=== PATIENT | female | born 1940 | race Caucasian/White ===

== ENCOUNTER 2025-01-20 11:15 | Emergency (ER) | payer MEDICARE, OTHER ==
[2025-01-20 13:21] VITALS: BP 181/63; PULSE 59
== END 2025-01-20 13:16 | disposition home or self-care (01) ==
LOC: DL.ED 11:15
DX: E11.39 Type 2 diabetes mellitus with other diabetic ophthalmic complication (principal); I10 Essential (primary) hypertension; Z88.8 Allergy status to other drugs, medicaments and biological substances; Z79.82 Long term (current) use of aspirin; Z79.899 Other long term (current) drug therapy
CPT/HCPCS: 99283; A9270; 99284; J3490

== ENCOUNTER 2025-01-22 10:10 | Inpatient (IN) | payer MEDICARE, OTHER ==
[2025-01-22 10:51] LABS: BASOPHILS PERCENT AUTO 0.3 % (0.0-1.0); EOSINOPHILS PERCENT AUTO 0.8 % (1.0-3.0); LYMPHOCYTES PERCENT AUTO 10.1 % (20.5-50.1); MONOCYTES PERCENT AUTO 5.9 % (2-8); NEUTROPHILS PERCENT AUTO 82.9 % (42.2-75.2); PLATELET COUNT,PLT 161 10^3/uL (150-450); RED BLOOD CELL COUNT 3.33 10^6/uL (4.2-5.4); WHITE BLOOD CELL COUNT,WBC 8.7 10^3/uL (5.0-10.0)
[2025-01-22 11:06] LABS: INR 1.1 (0.9-1.2)
[2025-01-22 11:11] LABS: A/G RATIO 1.0; ALANINE AMINOTRANSFERASE,ALT 30.0 U/L (14-59); ASPARTATE AMNIOTRANSFERASE,AST 11.0 U/L (15-37); BILIRUBIN TOTAL 0.6 mg/dL (0.2-1.0); BLOOD UREA NITROGEN,BUN 35.0 mg/dL (7-18); CARBON DIOXIDE,CO2 17.0 mmol/L (21-32); CHLORIDE,CL 112.0 mmol/L (98-107); CREATININE 1.49 mg/dL (0.55-1.02); EST CRCL DRUG DOSING (CG) 20.91 mL/min; ESTIMATED GFR 35.0 mL/min (>=60); GLUCOSE RANDOM 197.0 mg/dL (70-99); POTASSIUM,K 3.9 mmol/L (3.5-5.1); PROTEIN TOTAL,TP 7.0 g/dL (6.4-8.2); SODIUM,NA 143.0 mmol/L (136-145)
[2025-01-22] MEDS: Iopamidol 612 MG/ML 100 ML Bottle IVPUSH ONE (11:25)
[2025-01-22 12:10] LABS: APPEARANCE,URINE CLEAR (CLEAR); GLUCOSE,URINE NEGATIVE (NEGATIVE); OCCULT BLOOD,URINE NEGATIVE (NEGATIVE)
[2025-01-22 12:20] LABS: SQUAMOUS EPITHELIAL CELLS,UR FEW /HPF (NOT SEEN)
[2025-01-22] MEDS ORDERED: Sodium Chloride 0.9% 10 ML Syringe FLUSH PRN (14:15)
[2025-01-22] MEDS ORDERED: Ondansetron 4 MG/2 ML SDV IVPUSH PRN (14:15)
[2025-01-22] MEDS ORDERED: Sennosides/Docusate Sodium 50-8.6 MG Tab PO PRN (14:15)
[2025-01-22 14:53] LABS: IRON,FE 70.0 ug/dL (50-170); PERCENT FE SATURATION 25.7 % (20.0-50.0)
[2025-01-22 15:06] LABS: FOLIC ACID 17.4 ng/mL (8.6-58.9)
[2025-01-22] MEDS ORDERED: 50% Dextrose in Water 50 ML Syringe IVPUSH PRN (15:32)
[2025-01-22 16:35] LABS: T4 FREE 0.95 ng/dL (0.76-1.46); TSH ULTRASENSITIVE 3.37 uIU/mL (0.36-3.74)
[2025-01-22] MEDS ORDERED: hydrALAZINE 20 MG/ML SDV IVPUSH PRN (19:33)
[2025-01-22] MEDS: Dorzolamide/Timolol 2%-0.5% Ophth Soln 10 ML Bottle EYEBOTH SCH (20:29)
[2025-01-22] MEDS: Sodium Chloride 0.9% 10 ML Syringe FLUSH SCH (20:32)
[2025-01-23 06:25] LABS: BASOPHILS PERCENT AUTO 0.2 % (0.0-1.0); EOSINOPHILS PERCENT AUTO 1.9 % (1.0-3.0); LYMPHOCYTES PERCENT AUTO 14.1 % (20.5-50.1); MONOCYTES PERCENT AUTO 10.7 % (2-8); NEUTROPHILS PERCENT AUTO 73.1 % (42.2-75.2); PLATELET COUNT,PLT 156 10^3/uL (150-450); RED BLOOD CELL COUNT 3.16 10^6/uL (4.2-5.4); WHITE BLOOD CELL COUNT,WBC 10.1 10^3/uL (5.0-10.0)
[2025-01-23 06:43] LABS: ALANINE AMINOTRANSFERASE,ALT 23.0 U/L (14-59); ASPARTATE AMNIOTRANSFERASE,AST 12.0 U/L (15-37); BILIRUBIN TOTAL 0.6 mg/dL (0.2-1.0); BLOOD UREA NITROGEN,BUN 35.0 mg/dL (7-18); CARBON DIOXIDE,CO2 20.0 mmol/L (21-32); CHLORIDE,CL 109.0 mmol/L (98-107); CREATININE 1.59 mg/dL (0.55-1.02); EST CRCL DRUG DOSING (CG) 21.57 mL/min; GLUCOSE RANDOM 148.0 mg/dL (70-99); POTASSIUM,K 3.9 mmol/L (3.5-5.1); PROTEIN TOTAL,TP 6.2 g/dL (6.4-8.2); SODIUM,NA 139.0 mmol/L (136-145)
[2025-01-23 06:47] LABS: A/G RATIO 1.0; ESTIMATED GFR 32.0 mL/min (>=60)
[2025-01-23] MEDS: Lutein/Minerals/Vit A,C & E Tab PO SCH (08:06)
[2025-01-23] MEDS ORDERED: Cyanocobalamin (Vitamin B12) 1,000 MCG Tab PO SCH (09:00)
[2025-01-23] MEDS ORDERED: Non-Formulary Medication 1 Each (Fish Oil/Omega-3 Fatty Acids [Fish Oil 1,000 Mg] 1 GM Cap PO SCH (09:00)
[2025-01-24 06:17] LABS: BASOPHILS PERCENT AUTO 0.2 % (0.0-1.0); EOSINOPHILS PERCENT AUTO 1.8 % (1.0-3.0); LYMPHOCYTES PERCENT AUTO 12.0 % (20.5-50.1); MONOCYTES PERCENT AUTO 10.6 % (2-8); NEUTROPHILS PERCENT AUTO 75.4 % (42.2-75.2); PLATELET COUNT,PLT 153 10^3/uL (150-450); RED BLOOD CELL COUNT 3.39 10^6/uL (4.2-5.4); WHITE BLOOD CELL COUNT,WBC 12.5 10^3/uL (5.0-10.0)
[2025-01-24 06:39] LABS: ALANINE AMINOTRANSFERASE,ALT 25.0 U/L (14-59); ASPARTATE AMNIOTRANSFERASE,AST 16.0 U/L (15-37); BILIRUBIN TOTAL 0.5 mg/dL (0.2-1.0); BLOOD UREA NITROGEN,BUN 37.0 mg/dL (7-18); CARBON DIOXIDE,CO2 18.0 mmol/L (21-32); CHLORIDE,CL 105.0 mmol/L (98-107); CREATININE 1.64 mg/dL (0.55-1.02); EST CRCL DRUG DOSING (CG) 20.92 mL/min; GLUCOSE RANDOM 144.0 mg/dL (70-99); POTASSIUM,K 3.5 mmol/L (3.5-5.1); PROTEIN TOTAL,TP 6.3 g/dL (6.4-8.2); SODIUM,NA 138.0 mmol/L (136-145)
[2025-01-24 06:40] LABS: A/G RATIO 0.97; ESTIMATED GFR 31.0 mL/min (>=60)
[2025-01-24] MEDS: Insulin Glarg,Human.Rec.Analog 100 Unit/ML 10 ML Vial SUBCUT SCH (10:42)
[2025-01-24] MEDS: Potassium Chloride 10 MEQ Tab.ER PO SCH (11:04)
[2025-01-24 13:21] LABS: BLOOD UREA NITROGEN,BUN 37.0 mg/dL (7-18); CARBON DIOXIDE,CO2 20.0 mmol/L (21-32); CHLORIDE,CL 105.0 mmol/L (98-107); CREATININE 1.6 mg/dL (0.55-1.02); EST CRCL DRUG DOSING (CG) 21.44 mL/min; GLUCOSE RANDOM 221.0 mg/dL (70-99); POTASSIUM,K 3.6 mmol/L (3.5-5.1); SODIUM,NA 136.0 mmol/L (136-145)
[2025-01-24 13:22] LABS: ESTIMATED GFR 32.0 mL/min (>=60)
[2025-01-25] MEDS: Iopamidol 612 MG/ML 100 ML Bottle IVPUSH ONE (04:37)
[2025-01-25 06:43] LABS: BASOPHILS PERCENT AUTO 0.2 % (0.0-1.0); EOSINOPHILS PERCENT AUTO 1.4 % (1.0-3.0); LYMPHOCYTES PERCENT AUTO 9.7 % (20.5-50.1); MONOCYTES PERCENT AUTO 9.7 % (2-8); NEUTROPHILS PERCENT AUTO 79.0 % (42.2-75.2); PLATELET COUNT,PLT 165 10^3/uL (150-450); RED BLOOD CELL COUNT 3.44 10^6/uL (4.2-5.4); WHITE BLOOD CELL COUNT,WBC 12.1 10^3/uL (5.0-10.0)
[2025-01-25 07:07] LABS: BLOOD UREA NITROGEN,BUN 32.0 mg/dL (7-18); CARBON DIOXIDE,CO2 20.0 mmol/L (21-32); CHLORIDE,CL 106.0 mmol/L (98-107); CREATININE 1.52 mg/dL (0.55-1.02); EST CRCL DRUG DOSING (CG) 22.57 mL/min; GLUCOSE RANDOM 167.0 mg/dL (70-99); POTASSIUM,K 3.7 mmol/L (3.5-5.1); PROTEIN TOTAL,TP 6.4 g/dL (6.4-8.2); SODIUM,NA 139.0 mmol/L (136-145)
[2025-01-25 07:08] LABS: ALANINE AMINOTRANSFERASE,ALT 23.0 U/L (14-59); ASPARTATE AMNIOTRANSFERASE,AST 15.0 U/L (15-37); BILIRUBIN TOTAL 0.5 mg/dL (0.2-1.0)
[2025-01-25 07:10] LABS: A/G RATIO 0.94; ESTIMATED GFR 34.0 mL/min (>=60)
[2025-01-26 06:40] LABS: BASOPHILS PERCENT AUTO 0.3 % (0.0-1.0); EOSINOPHILS PERCENT AUTO 1.5 % (1.0-3.0); LYMPHOCYTES PERCENT AUTO 13.8 % (20.5-50.1); MONOCYTES PERCENT AUTO 10.8 % (2-8); NEUTROPHILS PERCENT AUTO 73.6 % (42.2-75.2); PLATELET COUNT,PLT 164 10^3/uL (150-450); RED BLOOD CELL COUNT 3.41 10^6/uL (4.2-5.4); WHITE BLOOD CELL COUNT,WBC 9.8 10^3/uL (5.0-10.0)
[2025-01-26 07:03] LABS: ALANINE AMINOTRANSFERASE,ALT 21.0 U/L (14-59); ASPARTATE AMNIOTRANSFERASE,AST 11.0 U/L (15-37); BILIRUBIN TOTAL 0.4 mg/dL (0.2-1.0); BLOOD UREA NITROGEN,BUN 27.0 mg/dL (7-18); CARBON DIOXIDE,CO2 20.0 mmol/L (21-32); CHLORIDE,CL 109.0 mmol/L (98-107); CREATININE 1.3 mg/dL (0.55-1.02); EST CRCL DRUG DOSING (CG) 26.39 mL/min; GLUCOSE RANDOM 151.0 mg/dL (70-99); POTASSIUM,K 3.9 mmol/L (3.5-5.1); PROTEIN TOTAL,TP 6.3 g/dL (6.4-8.2); SODIUM,NA 142.0 mmol/L (136-145)
[2025-01-26 07:05] LABS: A/G RATIO 0.85; ESTIMATED GFR 41.0 mL/min (>=60)
[2025-01-26 07:48] VITALS: BP 172/52; PULSE 61
== END 2025-01-26 11:31 | disposition home or self-care (01) | DRG 690 ==
LOC: DL.ED 10:10 → DL.MS 13:17 → DL.ED 13:49
PROVIDERS: ADMIT Student in an Organized Health Care Education/Training Program; ATTEND Student in an Organized Health Care Education/Training Program
DX: N39.0 Urinary tract infection, site not specified (principal); I10 Essential (primary) hypertension; E11.9 Type 2 diabetes mellitus without complications; K52.9 Noninfective gastroenteritis and colitis, unspecified; Z88.1 Allergy status to other antibiotic agents; Z88.5 Allergy status to narcotic agent; Z66 Do not resuscitate; D72.829 Elevated white blood cell count, unspecified; H10.9 Unspecified conjunctivitis; E11.319 Type 2 diabetes mellitus with unspecified diabetic retinopathy without macular edema; Z79.899 Other long term (current) drug therapy; H54.7 Unspecified visual loss; I12.9 Hypertensive chronic kidney disease with stage 1 through stage 4 chronic kidney disease, or unspecified chronic kidney disease; E11.22 Type 2 diabetes mellitus with diabetic chronic kidney disease; D63.8 Anemia in other chronic diseases classified elsewhere; Z96.659 Presence of unspecified artificial knee joint; Z98.890 Other specified postprocedural states; Z90.10 Acquired absence of unspecified breast and nipple; Z88.0 Allergy status to penicillin; Z88.8 Allergy status to other drugs, medicaments and biological substances; Z79.82 Long term (current) use of aspirin; Z79.4 Long term (current) use of insulin; Z79.84 Long term (current) use of oral hypoglycemic drugs
CPT/HCPCS: 36415; 71045; 71260; 74177; 80048; 80053; 81001; 82272; 82607; 82728; 82746; 82947; 83036; 83540; 83550; 83690; 83735; 84439; 84443; 85025; 85610; 85730; 87086; 87088; 87186; 87428-QW; 96374; 97110-GP; 97116-GP; 97161-GP; 97530-GP; 99284; 99285-25; A9270-GY; J0696; J1815-GY; J2765; J7030; Q9967